=== PATIENT | female | born 1945 | race Caucasian/White ===

== ENCOUNTER 2017-01-16 15:27 | Observation (INO) | payer OTHER, MEDICARE ==
--- NOTE | 2017-01-16 15:34 | EDPHY ---
H & P Time Seen by Provider: 01/16/17 15:29 HPI/ROS: Chief complaint. Chest pain HPI. 71[place]year[place] arrive 6 [place]. Today she is here by EMS after developing chest discomfort, dizziness, fatigue that began after she was shoveling snow and then walking the dog. She came home sat down and rested. She has no symptoms now. Symptoms lasted 30 minutes. She was short of breath, clammy felt that her blood pressure was high. I she has had no fever or cough. No unusual leg pain or swelling. The patient had an CO 2 years ago and has had 2 stents. Strong family history. Subsequently she has done well after her CO and stents. The constriction and tightness that she felt was really around the upper abdomen. There was no radiation ROS Constitutional. Chills and fatigue Eyes. no problems with vision ENT. no sore throat, no nasal drainage Cardiovascular. no chest pain Respiratory. Shortness of breath without cough Abdominal. Constriction upper abdomen. Nausea without vomiting . no problems urinating MS. no calf pain/swelling, no neck/back pain, no joint pain Skin. no rash Lymph. no swollen glands Neuro. Slightly dizzy Past Medical/Surgical History: CO with 2 stents 2 years ago Strong family history of coronary artery disease with mom having an MRI at about this patient's age Social History: , nonsmoker, no alcohol Constitutional: Initial Vital Signs Temperature (C) 37.2 C 01/16/17 15:39 Heart Rate 79 01/16/17 15:39 Respiratory Rate 16 01/16/17 15:39 Blood Pressure 161/94 H 01/16/17 15:39 O2 Sat (%) 94 01/16/17 15:39 O2 Delivery Mode Room Air O2 (L/minute) 2 Allergies/Adverse Reactions: No Known Allergies Allergy (Unverified 01/16/17 15:37) Home Medications: Medication Instructions Recorded Aspirin 01/16/17 Nitroglycerin 01/16/17 Simvastatin 01/16/17 Medical Decision Making - Diagnostics EKG Interpretation: EKG interpreted by me shows normal sinus rhythm with normal interval and axis. QRS is normal there appears to be ST elevation in leads V1 and V2 with some reciprocal changes in V1 through V3. No other significant ST elevation or depression. Inverted T-waves in aVL. No arrhythmia. Rate 75 No old EKGs for comparison Imaging: One-view chest x-ray interpreted by me is normal Procedures: IV normal saline, monitor ED Course/Re-evaluation: 4:00 p.m. I consulted and discussed the case with Dr. Gillespie, cardiology and we reviewed the patient's EKG together. He agrees that it is not normal but as the patient is currently without symptoms he recommends evaluation and admission for serial enzymes. Re-evaluation at 4:30 p.m.. Patient had a brief episode of nausea. She was given Zofran. She is otherwise stable The patient, her , and I discussed imaging lab EKG findings. We discussed treatment plan and recommendation by Cardiology for admission. They expressed understanding and agreement We are trying to obtain old EKG by fax from [place] I consulted and discussed case with Dr. Thorpe, hospitalist, who agrees to the admission Differential Diagnosis: I considered acute coronary syndrome and STEMI. I have also considered gallbladder disease. I suspect that the patient is having anginal-type symptoms due to altitude. She does have pre-existing coronary artery disease with stents. I considered pneumonia, pulmonary embolus as well - Data Points Laboratory Results: Laboratory Results 01/16/17 15:38 01/16/17 15:38 01/16/17 01/16/17 01/16/17 15:38 15:38 15:38 WBC 5.51 10^3/uL 10^3/uL (3.80-9.50) RBC 5.26 10^6/uL 10^6/uL (4.18-5.33) Hgb 15.3 g/dL g/dL (12.6-16.3) Hct 46.2 % % (38.0-47.0) MCV 87.8 fL fL (81.5-99.8) MCH 29.1 pg pg (27.9-34.1) MCHC 33.1 g/dL g/dL (32.4-36.7) RDW 13.0 % % (11.5-15.2) Plt Count 208 10^3/uL 10^3/uL (150-400) MPV 10.4 fL fL (8.7-11.7) Neut % (Auto) 50.3 % % (39.3-74.2) Lymph % (Auto) 38.1 % % (15.0-45.0) [place] % (Auto) 8.0 % % (4.5-13.0) Eos % (Auto) 2.7 % % (0.6-7.6) Baso % (Auto) 0.7 % % (0.3-1.7) Nucleat RBC Rel Count 0.0 % % (0.0-0.2) Absolute Neuts (auto) 2.77 10^3/uL 10^3/uL (1.70-6.50) Absolute Lymphs (auto) 2.10 10^3/uL 10^3/uL (1.00-3.00) Absolute Monos (auto) 0.44 10^3/uL 10^3/uL (0.30-0.80) Absolute Eos (auto) 0.15 10^3/uL 10^3/uL (0.03-0.40) Absolute Basos (auto) 0.04 10^3/uL 10^3/uL (0.02-0.10) Absolute Nucleated RBC 0.00 10^3/uL 10^3/uL (0-0.01) Immature Gran % 0.2 % % (0.0-1.1) Immature Gran # 0.01 10^3/uL 10^3/uL (0.00-0.10) PT 12.9 SEC SEC (12.0-15.0) INR 0.98 (0.83-1.16) APTT 28.6 SEC SEC (23.0-38.0) D-Dimer 0.38 ug/mLFEU ug/mLFEU (0.00-0.50) Sodium 141 mEq/L mEq/L (134-144) Potassium 4.2 mEq/L mEq/L (3.5-5.2) Chloride 103 mEq/L mEq/L (97-110) Carbon Dioxide 27 mEq/l mEq/l (22-31) Anion Gap 11 mEq/L mEq/L (8-16) BUN 16 mg/dL mg/dL (7-23) Creatinine 0.9 mg/dL mg/dL (0.6-1.0) Estimated GFR > 60 Glucose 115 mg/dL H mg/dL (70-100) Calcium 9.6 mg/dL mg/dL (8.5-10.4) Troponin I < 0.012 ng/mL ng/mL (0-0.034) NT-Pro-B Natriuret Pep 509 pg/mL H pg/mL (0-125) Lipase 142.0 IU/L IU/L (23-300) Departure - Departure Disposition: [facility] Inpatient Acute Clinical Impression: Chest pain Qualifiers: Chest pain type: unspecified Qualified Code(s): R07.9 - Chest pain, unspecified Condition: Good Referrals: Patient,NotPresent [Unknown] - As per Instructions
--- NOTE | 2017-01-16 15:42 | CPEKG ---
Heart Rate: 75 RR Interval: 800 P-R Interval: 160 QRSD Interval: 84 QT Interval: 372 QTC Interval: 416 P [place]: -17 QRS [place]: 39 T Wave [place]: 100 EKG Severity - ABNORMAL ECG - EKG Impression: SINUS RHYTHM EKG Impression: PROBABLE ANTEROSEPTAL INFARCT, AGE INDETERM EKG Impression: LATERAL LEADS ARE ALSO INVOLVED Electronically Signed By: Sergei Alatorre 16-Jan-2017 23:27:01
[2017-01-16 15:44] LABS: % IMMATURE GRANULYOCYTES 0.2 % (0.0-1.1); ABSOLUTE IMMATURE GRANULOCYTES 0.01 10^3/uL (0.00-0.10); ADD DIFF? NO; ADD MORPH? NO; ADD SCAN? NO; ATYPICAL LYMPHOCYTE FLAG 0 (0-99); FRAGMENT RBC FLAG 0 (0-99); HEMATOCRIT 46.2 % (38.0-47.0); HEMOGLOBIN 15.3 g/dL (12.6-16.3); LEFT SHIFT FLG 0 (0-99); LIPEMIA HEMOLYSIS FLAG 80 (0-99); MEAN CELL HEMOGLOBIN 29.1 pg (27.9-34.1); MEAN CELL HEMOGLOBIN CONCENTR. 33.1 g/dL (32.4-36.7); MEAN CELL VOLUME 87.8 fL (81.5-99.8); MEAN PLATELET VOLUME 10.4 fL (8.7-11.7); PLATELET CLUMPS FLAG 0 (0-99); PLATELET COUNT 208 10^3/uL (150-400); RED BLOOD CELL COUNT 5.26 10^6/uL (4.18-5.33)
[2017-01-16 15:50] LABS: INR 0.98 (0.83-1.16); PROTIME(PATIENT) 12.9 SEC (12.0-15.0)
[2017-01-16 15:51] LABS: APTT 28.6 SEC (23.0-38.0)
[2017-01-16 16:01] LABS: ANION GAP 11 mEq/L (8-16); CALCIUM 9.6 mg/dL (8.5-10.4); CARBON DIOXIDE 27 mEq/l (22-31); CHLORIDE 103 mEq/L (97-110); CREATININE 0.9 mg/dL (0.6-1.0); GLOMERULAR FILTRATION RATE > 60; GLUCOSE 115 mg/dL (70-100); POTASSIUM 4.2 mEq/L (3.5-5.2); SODIUM 141 mEq/L (134-144)
[2017-01-16 16:13] LABS: TROPONIN I < 0.012 ng/mL (0-0.034)
[2017-01-16] MEDS ORDERED: ONDANSETRON 4 MG/2 ML VIAL IVP ONE (16:24)
[2017-01-16] MEDS ORDERED: NITROGLYCERIN 0.4 MG BTL SL PRN (16:40)
[2017-01-16] MEDS ORDERED: ACETAMINOPHEN 325 MG TAB PO PRN (16:40)
[2017-01-16] MEDS ORDERED: ONDANSETRON DISINTEGRATING 4 MG TAB PO PRN (16:40)
--- NOTE | 2017-01-16 17:19 | PDGENHP ---
History and Physical - Chief Complaint Acute Chest Pain - History of Present Illness 71 yo F p/w acute chest pain characterized as a constricting sensation located in the mid-epigastric area w/ associated dizziness, fatigue, nausea. Onset of symptoms on the AM of 01/16/17 s/p exertion w/ shoveling drive-way and exacerbated by going on a walk w/ . Duration approx 30 minutes. Nausea recurred in ED, alleviated w/ zofran. She took her AM statin and ASA, given additional ASA in ED. She is visiting from [place] for 6 days and has been physically active during her visit, hiking trails w/o exertional symptoms. Of note, her constellation of symptoms is similar in character but less severe than those experienced 2 years ago when she had an PR requiring 2 stents. Most recent Echo approx 1.5 years ago, most recent nuc stress test approx 6 months ago. She did not tolerate bblocker as outpt, getting dizzy even at rest. History Information - Allergies/Home Medication List Allergies/Adverse Reactions: No Known Allergies Allergy (Unverified 01/16/17 15:37) Home Medications: Aspirin 01/16/17 [Last Taken Unknown] Nitroglycerin 01/16/17 [Last Taken Unknown] Simvastatin 01/16/17 [Last Taken Unknown] I have personally reviewed and updated: family history, medical history, social history, surgical history - Past Medical History coronary artery disease (w/ PR 2013) - Surgical History Additional surgical history: left breast surg - Family History Additional family history: mother w/ PR in late 60s, father w/ rheumatoid arthritis - Social History Smoking Status: Never smoked Alcohol Use: None Drug Use: None Additional social history: physically active w/o recent reduction in exercise tolerance Review of Systems ROS: 10pt was reviewed & negative except for what was stated in HPI & below Constitutional: Reports: diaphoresis, weakness Cardiac: Reports: chest pain Gastrointestinal: Reports: nausea Physical Exam Temp Pulse Resp BP Pulse Ox 37.2 C 75 18 154/77 H 93 01/16/17 15:39 01/16/17 16:00 01/16/17 16:00 01/16/17 16:00 01/16/17 16:00 Constitutional: no apparent distress, appears nourished, not in pain Eyes: PERRL, anicteric sclera, EOMI Ears, Nose, Mouth, Throat: moist mucous membranes, hearing normal, ears appear normal, no oral mucosal ulcers Cardiovascular: regular rate and rhythym, no murmur, rub, or gallop, No edema Respiratory: no respiratory distress, no rales or rhonchi, clear to auscultation Gastrointestinal: normoactive bowel sounds, no palpable masses, other (soft, mild tenderness to deep palpation RUQ), No distension Genitourinary: no bladder fullness, no bladder tenderness Skin: warm, normal color, no rashes or abrasions, no fluctuance, no induration, No mottled Musculoskeletal: other (no left pectoralis muscle tenderness, no left shoulder tenderness) Neurologic: AAOx3, sensation intact bilaterally, No weakness Psychiatric: interacting appropriately, not anxious, not encephalopathic, thought process linear Lab Data & Imaging Review 01/16/17 15:38 01/16/17 15:38 WBC 5.51 10^3/uL (3.80-9.50) 01/16/17 15:38 RBC 5.26 10^6/uL (4.18-5.33) 01/16/17 15:38 Hgb 15.3 g/dL (12.6-16.3) 01/16/17 15:38 Hct 46.2 % (38.0-47.0) 01/16/17 15:38 MCV 87.8 fL (81.5-99.8) 01/16/17 15:38 MCH 29.1 pg (27.9-34.1) 01/16/17 15:38 MCHC 33.1 g/dL (32.4-36.7) 01/16/17 15:38 RDW 13.0 % (11.5-15.2) 01/16/17 15:38 Plt Count 208 10^3/uL (150-400) 01/16/17 15:38 MPV 10.4 fL (8.7-11.7) 01/16/17 15:38 Neut % (Auto) 50.3 % (39.3-74.2) 01/16/17 15:38 Lymph % (Auto) 38.1 % (15.0-45.0) 01/16/17 15:38 [place] % (Auto) 8.0 % (4.5-13.0) 01/16/17 15:38 Eos % (Auto) 2.7 % (0.6-7.6) 01/16/17 15:38 Baso % (Auto) 0.7 % (0.3-1.7) 01/16/17 15:38 Nucleat RBC Rel Count 0.0 % (0.0-0.2) 01/16/17 15:38 Absolute Neuts (auto) 2.77 10^3/uL (1.70-6.50) 01/16/17 15:38 Absolute Lymphs (auto) 2.10 10^3/uL (1.00-3.00) 01/16/17 15:38 Absolute Monos (auto) 0.44 10^3/uL (0.30-0.80) 01/16/17 15:38 Absolute Eos (auto) 0.15 10^3/uL (0.03-0.40) 01/16/17 15:38 Absolute Basos (auto) 0.04 10^3/uL (0.02-0.10) 01/16/17 15:38 Absolute Nucleated RBC 0.00 10^3/uL (0-0.01) 01/16/17 15:38 Immature Gran % 0.2 % (0.0-1.1) 01/16/17 15:38 Immature Gran # 0.01 10^3/uL (0.00-0.10) 01/16/17 15:38 PT 12.9 SEC (12.0-15.0) 01/16/17 15:38 INR 0.98 (0.83-1.16) 01/16/17 15:38 APTT 28.6 SEC (23.0-38.0) 01/16/17 15:38 D-Dimer 0.38 ug/mLFEU (0.00-0.50) 01/16/17 15:38 Sodium 141 mEq/L (134-144) 01/16/17 15:38 Potassium 4.2 mEq/L (3.5-5.2) 01/16/17 15:38 Chloride 103 mEq/L (97-110) 01/16/17 15:38 Carbon Dioxide 27 mEq/l (22-31) 01/16/17 15:38 Anion Gap 11 mEq/L (8-16) 01/16/17 15:38 BUN 16 mg/dL (7-23) 01/16/17 15:38 Creatinine 0.9 mg/dL (0.6-1.0) 01/16/17 15:38 Estimated GFR > 60 01/16/17 15:38 Glucose 115 mg/dL (70-100) H 01/16/17 15:38 Calcium 9.6 mg/dL (8.5-10.4) 01/16/17 15:38 Troponin I < 0.012 ng/mL (0-0.034) 01/16/17 15:38 NT-Pro-B Natriuret Pep 509 pg/mL (0-125) H 01/16/17 15:38 Lipase 142.0 IU/L (23-300) 01/16/17 15:38 Visualized and Interpreted Chest x-ray results: Yes Chest X-Ray results: no infiltrate Visualized and Interpreted EKG results: Yes EKG Interpretation: Positive for: other ([place]UR[place]A V1-V2, TWI V2-V3) Assessment & Plan Assessment: 71 yo F p/w acute chest pain/nausea in setting of known CAD Plan: 1. Chest pain. Acute, new problem, further w/u indicated. Potential etiologies include ACS vs. cholecystitis vs. atypical. Dimer neg, ruled out for PE - get stat Echo to r/o large wall motion abnl - get outside records including EKG and Echo from [facility], compare echos/EKG - cycle troponins - monitor on tele - add on liver panel to labs, get RUQ US if abnl or pain/nausea w/ PO intake tonight (has been tolerating a normal diet w/o issues) - if all of above neg, get nuc stress test in AM - d/w Dr. Alatorre, reports that he has viewed the EKG w/ Dr. Gillespie and given that patient was symptom free when it was performed, has normal WBC, normal trop , and known hx of PR, Dr. Gillespie does not believe this is STEMI - if Echo significantly abnl, will call Dr. Gillespie and request cath 2. CAD. Chronic, cont ASA and statin - hold bblocker given intolerance - if SBP > 160, will give metop tart 12.5mg PO once Diet. Cardiac, NPO in AM PPx. Mod risk, lovenox 40 Code. Full Dispo. ADD 01/17, pending further eval indicated above.
[2017-01-16 18:11] LABS: ALBUMIN 4.6 g/dL (3.5-5.0); BILIRUBIN,TOTAL 0.9 mg/dL (0.1-1.4); BILIRUBIN-CONJUGATED 0.4 mg/dL (0.0-0.5); BILIRUBIN-UNCONJUGATED 0.5 mg/dL (0.0-1.1); TOTAL PROTEIN 7.5 g/dL (6.3-8.2)
--- NOTE | 2017-01-16 18:21 | ECHO ---
[id number] + + [address] : : [place] [address] : : [phone] + + Adult Echocardiographic Report + + :Name: ELIS WELLS RStudy Date: 01/16/2017 05:36 PM : : Hospital Admission Number: [id number] Lo cation: 142: :: 1945 Gender: Female Height: 64 in : :Age: 71 yrs Race: WH Weight: 13 0 lb : :Reason For Study: Eval for focal wall motion abnormalities : : BSA: 1.6 m eters2 : :History: OH/Stents : + + MMode/2D Measurements \T\ Calculations RVDd: 2.6 cm LVOT diam: 1.6 cm LVLd ap4: 7.0 cm SV(MOD-sp4): 30.0 ml LVOT area: 2.0 cm2 EDV(MOD-sp4): 63.0 ml LVLs ap4: 6.7 cm ESV(MOD-sp4): 33.0 ml EF(MOD-sp4): 47.6 % Normal Measurement Values: + + :LVIDd (3.5-5.7cm) IVSd (0.6-1.1cm) LVPWd (0.6-1.1cm) Aortic Root (2.0-3.7cm)Left Atrium (1.5-4.0cm): :LV Vol(d) (76-115ml) LV Vol(s) (29-48ml) Ejec Fraction (50-65%)PV Lui (0.6- 1.2m/s) TV Lui (0.4-1.0m/s) : :MV E Lui (0.8-1.0m/s)MV A Lui (0.3-1.0m/s)LVOT Lui (0.7-1.2m/s) Asc Ao Lui ( 0.9-1.8m/s) : + + Doppler Measurements \T\ Calculations MV E max lui: MV V2 max: Ao V2 max: LV V1 max: 76.5 cm/sec 89.6 cm/sec 123.5 cm/sec 117.0 cm/sec MV A max lui: MV max PG: Ao max P.1 mmHgLV V1 max P.4 cm/sec 3.2 mmHg Ao mean P.5 mmHg MV E/A: 0.94 MV V2 mean: 3.0 mmHg LV V1 mean PG: MV dec time: 57.9 cm/sec Ao V2 mean: 2.0 mmHg 0.25 sec MV mean P.6 cm/sec LV V1 mean: 2.0 mmHg Ao V2 VTI: 25.2 cm 72.1 cm/sec MV V2 VTI: 25.6 cmAVA(I,D): 2.2 cm2 LV V1 VTI: 27.6 cm MVA(VTI): 2.2 cm2 DONOVAN(V,D): 1.9 cm2 SV(LVOT): 55.5 ml PA V2 max: TR max lui: 79.1 cm/sec 210.0 cm/sec PA max PG: TR max P.5 mmHg 17.6 mmHg RAP systole: 10.0 mmHg RVSP(TR): 27.6 mmHg Left Ventricle The left ventricle is normal in size. There is normal left ventricular wall thickness. Ejection Fraction = 45-55%. There is Doppler evidence for diastolic dysfunction. Akinetic/Dyskinetic [place] and diatal matthieu-septal wall with likely scar and possible old thrombus ([employer] definity contrast study for further evaluation). Right Ventricle The right ventricle is normal in size and function. Atria The left atrial size is normal. Right atrial size is normal. The interatrial septum is intact with no evidence for an atrial septal defect. Mitral Valve The mitral valve is normal in structure and function. There is no mitral valve stenosis. There is trace to mild mitral regurgitation. Tricuspid Valve The tricuspid valve is normal in structure and function. There is no tricuspid stenosis. There is mild tricuspid regurgitation. Right ventricular systolic pressure is normal. Aortic Valve The aortic valve is not well visualized. There is no aortic stenosis. Pulmonic Valve The pulmonic valve is not well visualized. There is no pulmonic valvular stenosis. There is no pulmonic valvular regurgitation. Great Vessels The aortic root is not well visualized but is probably normal size. Pericardium/Pleural There is a fat pad seen. Conclusion A complete two-dimensional transthoracic echocardiogram was performed (2D, M-mode, Doppler and color flow Doppler). Limited parasternal windows. There is Doppler evidence for diastolic dysfunction. There is trace to mild mitral regurgitation. There is mild tricuspid regurgitation. Right ventricular systolic pressure is normal. The aortic valve is not well visualized. The aortic root is not well visualized but is probably normal size. Akinetic/Dyskinetic [place] and diatal matthieu-septal wall with likely scar and possible old thrombus (consisder definity contrast study for further evaluation). Ejection Fraction = 45-55%. Final Reading Physician: Vito Huerta signed on 01/16/2017 06:19 PM Ordering Physician: Ajith Thorpe Performed By: Marimra Bahena
[2017-01-16] MEDS ORDERED: TEMAZEPAM 15 MG CAP PO PRN (22:08)
--- NOTE | 2017-01-17 00:23 | CPEKG ---
Heart Rate: 59 RR Interval: 1017 P-R Interval: 164 QRSD Interval: 90 QT Interval: 440 QTC Interval: 436 P [place]: 63 QRS [place]: 27 T Wave [place]: 91 EKG Severity - ABNORMAL ECG - EKG Impression: SINUS RHYTHM EKG Impression: CONSIDER ANTEROSEPTAL INFARCT Electronically Signed By: Orlin Barrow 17-Jan-2017 12:53:17
[2017-01-17 04:35] LABS: ALANINE AMINOTRANSFERASE 37 IU/L (9-52); ALBUMIN 4.1 g/dL (3.5-5.0); ALKALINE PHOSPHATASE 76 IU/L (38-126); ANION GAP 7 mEq/L (8-16); ASPARTATE AMINOTRANSFERASE 42 IU/L (14-46); BILIRUBIN,TOTAL 1.3 mg/dL (0.1-1.4); CALCIUM 9.1 mg/dL (8.5-10.4); CARBON DIOXIDE 24 mEq/l (22-31); CHLORIDE 110 mEq/L (97-110); CHOLESTEROL 146 mg/dL (140-220); CHOLESTEROL/HDL RATIO 2.61 RATIO (1.00-4.44); CREATININE 0.8 mg/dL (0.6-1.0); GLOMERULAR FILTRATION RATE > 60; GLUCOSE 89 mg/dL (70-100); HIGH DENSITY LIPOPROTEIN 56 mg/dL (40-85); LDL/HDL RATIO 1.39 RATIO (1.00-3.22); LOW DENSITY LIPOPROTEIN 78 mg/dL (80-100); MAGNESIUM 2.2 mg/dL (1.6-2.3); NON-HIGH DENSITY LIPOPROTEIN 90 mg/dL (90-129); SODIUM 141 mEq/L (134-144); SPECIMEN HEMOLYSIS 148; TRIGLYCERIDE 60 mg/dL (35-135); VERY LOW DENSITY LIPOPROTEINS 12 mg/dL (8-25)
[2017-01-17 04:39] LABS: % IMMATURE GRANULYOCYTES 0.2 % (0.0-1.1); ABSOLUTE IMMATURE GRANULOCYTES 0.01 10^3/uL (0.00-0.10); ADD DIFF? NO; ADD MORPH? NO; ADD SCAN? NO; ATYPICAL LYMPHOCYTE FLAG 0 (0-99); FRAGMENT RBC FLAG 0 (0-99); HEMATOCRIT 43.6 % (38.0-47.0); HEMOGLOBIN 14.5 g/dL (12.6-16.3); LEFT SHIFT FLG 0 (0-99); LIPEMIA HEMOLYSIS FLAG 80 (0-99); MEAN CELL HEMOGLOBIN 29.1 pg (27.9-34.1); MEAN CELL HEMOGLOBIN CONCENTR. 33.3 g/dL (32.4-36.7); MEAN CELL VOLUME 87.4 fL (81.5-99.8); MEAN PLATELET VOLUME 10.3 fL (8.7-11.7); PLATELET CLUMPS FLAG 0 (0-99); PLATELET COUNT 166 10^3/uL (150-400); RED BLOOD CELL COUNT 4.99 10^6/uL (4.18-5.33); RED CELL DISTRIBUTION WIDTH 13.1 % (11.5-15.2)
[2017-01-17 04:40] LABS: INR 1.05 (0.83-1.16); PROTIME(PATIENT) 13.6 SEC (12.0-15.0)
[2017-01-17 04:41] LABS: APTT 28.9 SEC (23.0-38.0)
[2017-01-17 04:45] LABS: TROPONIN I 0.022 ng/mL (0-0.034)
[2017-01-17] MEDS ORDERED: ACETAMINOPHEN 325 MG TAB PO PRN (06:00)
[2017-01-17 07:03] LABS: ALANINE AMINOTRANSFERASE 41 IU/L (9-52); ALBUMIN 4.1 g/dL (3.5-5.0); ALKALINE PHOSPHATASE 88 IU/L (38-126); ANION GAP 9 mEq/L (8-16); ASPARTATE AMINOTRANSFERASE 26 IU/L (14-46); CALCIUM 9.5 mg/dL (8.5-10.4); CARBON DIOXIDE 26 mEq/l (22-31); CHLORIDE 108 mEq/L (97-110); CREATININE 0.8 mg/dL (0.6-1.0); GLOMERULAR FILTRATION RATE > 60; GLUCOSE 93 mg/dL (70-100); POTASSIUM 4.3 mEq/L (3.5-5.2); SODIUM 143 mEq/L (134-144)
[2017-01-17] MEDS ORDERED: ASPIRIN 325 MG TAB PO SCH (09:00)
[2017-01-17] MEDS ORDERED: HEPARIN 10,000 UNIT/10 ML MDV ONE (10:33)
[2017-01-17] MEDS ORDERED: fentaNYL 100 MCG/2 ML INJ ONE ×2 (10:33→11:18)
[2017-01-17] MEDS ORDERED: VERAPAMIL 5 MG/2 ML VIAL ONE (10:33)
[2017-01-17] MEDS ORDERED: MIDAZOLAM 2 MG/2 ML VIAL ONE ×2 (10:33→11:18)
[2017-01-17] MEDS ORDERED: LIDOCAINE 1% 30 ML SDV ONE (10:33)
[2017-01-17] MEDS ORDERED: IOPAMIDOL (ISOVUE-370) 150 ML BTL IV ONE (10:34)
[2017-01-17 13:01] VITALS: TEMP 97.2
--- NOTE | 2017-01-17 14:39 | HOSPPROG ---
Hospitalist Progress Note Assessment/Plan: 71 yo F a cad here w cp, neg cath home today see dc summary Subjective: neg cath. no events tele (interp by me). case d/w dr garza Objective: Vital Signs Temp Pulse Resp BP Pulse Ox 36.2 C 63 17 105/57 L 98 01/17/17 12:59 01/17/17 14:02 01/17/17 14:02 01/17/17 14:02 01/17/17 14:02 Laboratory Results 01/17/17 04:00 01/17/17 06:00 01/16/17 01/17/17 01/18/17 05:59 05:59 05:59 Intake Total 350 Output Total 0 Balance 350 PT 13.6 SEC (12.0-15.0) 01/17/17 04:00 INR 1.05 (0.83-1.16) 01/17/17 04:00 - Physical Exam Constitutional: no apparent distress, appears nourished Eyes: PERRL, anicteric sclera Ears, Nose, Mouth, Throat: moist mucous membranes, hearing normal Cardiovascular: regular rate and rhythym, no murmur, rub, or gallop Respiratory: no respiratory distress, no rales or rhonchi Gastrointestinal: normoactive bowel sounds, soft, non-tender abdomen Genitourinary: No gant in urethra Skin: warm, normal color ICD10 Worksheet Patient Problems: Problems Problem Status Onset Chest pain Acute
--- NOTE | 2017-01-17 15:08 | GDS ---
DISCHARGE DIAGNOSES: 1. Chest pain of uncertain etiology. 2. Coronary disease. Please see admission history and physical by Dr. Ajith Thorpe. The patient presented with chest pain . She had serial negative troponins. She had negative D-dimer. She had an echocardiogram showing apical akinesis which is not new 2 years old. She underwent angiogram by Dr. Marty michelle which showed LAD stents patent. No other significant disease except for 50-60% diagonal with an o ld anterior apical WI and EF of 40%. She is on an aspirin and a statin. She is intolerant of beta blockers and MICAH inhibitors per her. Troponins were negative. She is discharged home with no presc riptions. Continue her medications. /[id number]/MODL
[2017-01-17 16:21] VITALS: BP 107/51; PULSE 68; RESP 16; O2SAT 94
[2017-01-17] MEDS ORDERED: diphenhydrAMINE 25 MG CAP PO ONE (22:08)
[2017-01-17] MEDS ORDERED: DIAZEPAM 5 MG TAB PO ONE (22:08)
[2017-01-18] MEDS ORDERED: NON-FORMULARY NEW DRUG (Simvastatin [Zocor] 20 MG) PO SCH (09:00)
[2017-01-18] MEDS ORDERED: ATORVASTATIN CALCIUM 10 MG TAB PO SCH (09:00)
[2017-01-18] MEDS ORDERED: ASPIRIN EC 81 MG TAB PO SCH (09:00)
== END 2017-01-17 16:43 | disposition home or self-care (01) ==
LOC: EDUNIT# → F1N 17:10
PROVIDERS: ADMIT Internal Medicine; ATTEND Internal Medicine
PROC: B2151ZZ Fluoroscopy of Left Heart using Low Osmolar Contrast (ICD-10-PCS; principal; 2017-01-17 11:55)
PROC: B2111ZZ Fluoroscopy of Multiple Coronary Arteries using Low Osmolar Contrast (ICD-10-PCS; principal; 2017-01-17 11:55)
PROC: 4A023N7 Measurement of Cardiac Sampling and Pressure, Left Heart, Percutaneous Approach (ICD-10-PCS; principal; 2017-01-17 11:55)
DX: R07.9 Chest pain, unspecified (principal); I25.10 Atherosclerotic heart disease of native coronary artery without angina pectoris; I25.2 Old myocardial infarction; Z95.5 Presence of coronary angioplasty implant and graft; Z79.82 Long term (current) use of aspirin; Z79.899 Other long term (current) drug therapy
CPT/HCPCS: 71010; 93005; 93306; 93458; G0378; J1644; J2250; J2405; J3010; Q9967